=== PATIENT | female | born 1995 | race Two or more races ===

== ENCOUNTER 2024-12-29 07:47 | Emergency (ER) | payer OTHER ==
[~2024-12-29] VITALS: Ht 152.4 cm; Wt 45.4 kg
[2024-12-29] MEDS: IV NS 0.9% 1,000 ML BAG IV ONE (08:31)
[2024-12-29 08:40] LABS: BASOPHILS # (AUTO) 0.1 K/uL (0.0-0.2); BASOPHILS % (AUTO) 0.3 % (0.0-2.0); EOSINOPHILS # (AUTO) 0.1 K/uL (0.0-0.7); EOSINOPHILS % (AUTO) 0.6 % (0.0-6.0); HEMATOCRIT 34 % (33-45); HEMOGLOBIN 11.4 g/dL (11.5-14.8); LYMPHOCYTES # (AUTO) 1.5 K/uL (0.8-4.8); LYMPHOCYTES % (AUTO) 9.4 % (20.0-44.0); MEAN CORPUSCULAR HEMOGLOBIN 33 PG (26.0-33.0); MEAN CORPUSCULAR HGB CONC 34 g/dl (31.0-36.0); MEAN CORPUSCULAR VOLUME 97 fL (82-100); MONOCYTES # (AUTO) 0.6 K/uL (0.1-1.30); MONOCYTES % (AUTO) 3.5 % (2.0-12.0); NEUTROPHILS # (AUTO) 13.8 K/uL (1.8-8.9); NEUTROPHILS % (AUTO) 86.2 % (43.0-81.0); PLATELET COUNT (AUTO) 557 K/uL (150-450); RED CELL DISTRIBUTION WIDTH 14.2 % (11.5-15.0)
[2024-12-29] MEDS ORDERED: KETOROLAC TROMETHAMINE 15 MG/ML VIAL ONE (08:46)
[2024-12-29 08:54] LABS: ALBUMIN 2.3 g/dL (3.4-5.0); BILIRUBIN,DIRECT 0.2 mg/dL (0.0-0.2); BILIRUBIN,TOTAL 0.3 mg/dL (0.2-1.0); CALCIUM, SERUM 8.7 mg/dL (8.5-10.1); CREATININE 0.8 mg/dL (0.6-1.3); POTASSIUM 3.4 mmol/L (3.5-5.1); TOTAL PROTEIN, SERUM 7.4 g/dL (6.4-8.2)
[2024-12-29] MEDS: KETOROLAC TROMETHAMINE 15 MG/ML VIAL IV ONE (09:12)
[2024-12-29 09:14] LABS: PLATELET ESTIMATE INCREASED
[2024-12-29 09:15] LABS: BAND % (MANUAL) 1 % (0.0-5.0)
[2024-12-29 09:16] LABS: EOSINOPHILS % (MANUAL) 1 % (0-4); LYMPHOCYTES % (MANUAL) 8 % (16-48); MONOCYTES % (MANUAL) 5 % (0-11.0); MYELOCYTES % 1 % (0-0); NEUTROPHILS % (MANUAL) 84 (42-76)
[2024-12-29] MEDS: CEFTRIAXONE 1GM BAG (ER ONLY) 50 ML IV ONE (09:39)
[2024-12-29] MEDS ORDERED: AZIT250T13 PO (09:57)
[2024-12-29] MEDS ORDERED: AMOX500T2 PO ×2 (09:57→10:04)
[2024-12-29] MEDS ORDERED: ALBU18HF2 INH (09:57)
[2024-12-29] MEDS: AZITHROMYCIN 500 MG in IV D5W 250 ML IV ONE (10:15)
[2024-12-29 10:40] VITALS: TEMP 98.6
[2024-12-29 11:15] VITALS: BP 112/74; O2SAT 99
== END 2024-12-29 11:24 | disposition home or self-care (01) ==
LOC: ER 07:55
DX: J16.8 Pneumonia due to other specified infectious organisms (principal); K62.5 Hemorrhage of anus and rectum; R10.12 Left upper quadrant pain; Z60.2 Problems related to living alone
CPT/HCPCS: 99285; 74176; 96365; 71045; 96367; 96361; 96375; 85025; 80048; 83690; 80076; 84703; 36415; 84702; 85007; J1885; J7030; J0456; A4223; J0696; J7060